=== PATIENT | male | born 1955 | race Caucasian/White ===

== ENCOUNTER 2018-06-25 15:17 | Inpatient (IN) | payer OTHER ==
[~2018-06-25] VITALS: Ht 188 cm; Wt 78.6 kg
[2018-06-25 15:26] VITALS: Ht 188 cm; Wt 78.6 kg
[2018-06-25 16:07] LABS: PLATELET COUNT 203 x10^3mcL (130-400)
[2018-06-25 16:18] LABS: RED CELL DISTRIBUTION WIDTH 16.5 % (11.5-14.5)
[2018-06-25 16:42] LABS: ALBUMIN 2.9 g/dL (3.4-5.0); BILIRUBIN TOTAL 0.4 mg/dL (0.20-1.00); CALCIUM 8.9 mg/dL (8.5-10.1); CARBON DIOXIDE 19.2 mmol/L (21-32); CREATININE SERUM 1.8 mg/dL (0.7-1.3); TOTAL PROTEIN, SERUM 7.8 g/dL (6.4-8.2)
[2018-06-25 16:44] LABS: POTASSIUM SERUM 2.3 mmol/L (3.5-5.1)
[2018-06-25] MEDS ORDERED: ATIVAN0.5 M1 PO (17:40)
[2018-06-25] MEDS ORDERED: METFORMIN HYD1000 M2 PO (17:40)
[2018-06-25] MEDS ORDERED: NOR10T PO (17:40)
[2018-06-25] MEDS ORDERED: LANTUS SOLOS100 U/M1 SQ (17:40)
[2018-06-25 17:44] LABS: BAND NEUTROPHIL 44 % (0-10); METAMYELOCTE 2 % (0-2); MONOCYTE 12 % (0-7); MYELOCYTE 2 % (0-2); SEGMENTED NEUTROPHILS 27 % (37-75); ovalocyte/elliptocyte 1+; rbc morphology (normal/abnorm) ABNORMAL (NORMAL)
[2018-06-25 17:45] LABS: target cell (codocyte) 1+; tear drop cell (dacryocyte) 1+
[2018-06-25 18:20] LABS: T3 TOTAL 0.66 ng/mL
[2018-06-25 18:29] LABS: FREE T4 1.47 ng/dL (0.76-1.46); FREE THYROXINE INDEX 2.4 ug/dL (1.4-4.5); T4(THYROXINE) 6.3 ug/dL (4.7-13.3)
[2018-06-25 18:36] VITALS: BP 131/84
[2018-06-25 19:08] LABS: MAGNESIUM 1.9 mg/dL (1.8-2.4); PHOSPHOROUS 3.8 mg/dL (2.5-4.9)
[2018-06-25 19:15] LABS: CHOLESTEROL/HDL RATIO 13.4
[2018-06-25] MEDS ORDERED: GLYBURIDE5 MG PO (20:31)
[2018-06-25] MEDS ORDERED: GEMFIBROZIL600 MG PO (20:32)
[2018-06-25 20:51] VITALS: BP 130/79
[2018-06-25] MEDS ORDERED: LOVASTATIN20 MG PO (20:51)
[2018-06-25] MEDS ORDERED: NEURONTIN600 MG PO (20:51)
[2018-06-25] MEDS ORDERED: FLO4 PO (20:52)
[2018-06-25] MEDS ORDERED: CLOPIDOGREL75 M1 PO (20:53)
[2018-06-25] MEDS ORDERED: HYDROCHLOROTHIA25 MG PO (20:53)
[2018-06-25] MEDS ORDERED: ASPIRIN325 MG PO (20:53)
[2018-06-25] MEDS ORDERED: LOVASTATIN40 MG PO (20:54)
[2018-06-25] MEDS ORDERED: AMBIEN5 MG PO (20:54)
[2018-06-25 21:22] LABS: UA SPECIFIC GRAVITY >=1.030 (1.005-1.035); microscopic required? YES; urine erythrocyte NEGATIVE (NEGATIVE)
[2018-06-25 21:30] LABS: AMPHETAMINE QUAL UR NONE DETECTED (See below)
[2018-06-25 22:18] LABS: CALCIUM 8.1 mg/dL (8.5-10.1); CARBON DIOXIDE 22.4 mmol/L (21-32); CREATININE SERUM 1.9 mg/dL (0.7-1.3)
[2018-06-25 22:25] LABS: POTASSIUM SERUM 2.9 mmol/L (3.5-5.1)
[2018-06-26 04:52] VITALS: BP 110/74
[2018-06-26 07:22] LABS: PLATELET COUNT 170 x10^3mcL (130-400)
[2018-06-26 07:35] LABS: BASOPHIL % 0 % (0-2); RED CELL DISTRIBUTION WIDTH 16.6 % (11.5-14.5)
[2018-06-26 07:36] LABS: rbc morphology (normal/abnorm) ABNORMAL (NORMAL)
[2018-06-26 07:40] LABS: CALCIUM 8.1 mg/dL (8.5-10.1); CARBON DIOXIDE 17.8 mmol/L (21-32); CREATININE SERUM 1.6 mg/dL (0.7-1.3); MAGNESIUM 1.7 mg/dL (1.8-2.4); PHOSPHOROUS 3.4 mg/dL (2.5-4.9); POTASSIUM SERUM 3.2 mmol/L (3.5-5.1)
[2018-06-26 08:00] VITALS: BP 114/75
[2018-06-26 08:50] VITALS: BP 125/77
[2018-06-26 13:54] VITALS: BP 123/69
[2018-06-26 16:54] VITALS: BP 152/84
[2018-06-26 20:52] VITALS: BP 132/82
[2018-06-27 05:43] VITALS: BP 121/78
[2018-06-27 06:52] LABS: PLATELET COUNT 194 x10^3mcL (130-400)
[2018-06-27 06:59] LABS: CALCIUM 8.4 mg/dL (8.5-10.1); CARBON DIOXIDE 18.9 mmol/L (21-32); CREATININE SERUM 1.3 mg/dL (0.7-1.3); MAGNESIUM 2.1 mg/dL (1.8-2.4); PHOSPHOROUS 3.3 mg/dL (2.5-4.9)
[2018-06-27 07:17] LABS: RED CELL DISTRIBUTION WIDTH 16.3 % (11.5-14.5)
[2018-06-27 09:18] VITALS: BP 121/74
[2018-06-27 10:42] LABS: BAND NEUTROPHIL 28 % (0-10); BASOPHIL 0 % (0-2); METAMYELOCTE 2 % (0-2); MONOCYTE 9 % (0-7); SEGMENTED NEUTROPHILS 44 % (37-75); ovalocyte/elliptocyte 1+; rbc morphology (normal/abnorm) ABNORMAL (NORMAL); schistocyte (helmet cell) 1+; target cell (codocyte) 1+; tear drop cell (dacryocyte) 1+
[2018-06-27 10:43] LABS: PLATELET MORPHOLOGY GIANT PLATELET SEEN; burr cell (echinocyte) 1+
[2018-06-27 13:57] VITALS: BP 168/90
[2018-06-27 14:13] LABS: IRON 31 ug/dL (65-170); TOTAL IRON BINDING CAPACITY 173 ug/dL (250-450)
[2018-06-27 17:11] VITALS: BP 144/83
[2018-06-27 20:00] VITALS: BP 144/86
[2018-06-28 05:17] VITALS: BP 138/83
[2018-06-28 06:51] LABS: PLATELET COUNT 212 x10^3mcL (130-400)
[2018-06-28 06:58] LABS: RED CELL DISTRIBUTION WIDTH 16.3 % (11.5-14.5)
[2018-06-28 07:10] LABS: CALCIUM 8.3 mg/dL (8.5-10.1); CARBON DIOXIDE 18.7 mmol/L (21-32); CHLORIDE SERUM 108 mmol/L (98-107); GFR1 > 60 mL/min; GLUCOSE SERUM 146 mg/dL (74-106); MAGNESIUM 2.6 mg/dL (1.8-2.4); PHOSPHOROUS 2.4 mg/dL (2.5-4.9); POTASSIUM SERUM 4.2 mmol/L (3.5-5.1); SODIUM SERUM 139 mmol/L (136-145)
[2018-06-28 09:18] VITALS: BP 146/90
[2018-06-28 11:10] LABS: BAND NEUTROPHIL 37 % (0-10); BASOPHIL 0 % (0-2); METAMYELOCTE 1 % (0-2); MONOCYTE 3 % (0-7); MYELOCYTE 2 % (0-2); SEGMENTED NEUTROPHILS 45 % (37-75)
[2018-06-28 11:11] LABS: ovalocyte/elliptocyte 1+; rbc morphology (normal/abnorm) ABNORMAL (NORMAL); target cell (codocyte) 1+; tear drop cell (dacryocyte) 1+
[2018-06-28 14:14] VITALS: BP 144/87
[2018-06-28 16:56] VITALS: BP 149/92
[2018-06-28 20:00] VITALS: BP 158/88
[2018-06-28 20:57] VITALS: BP 157/92
[2018-06-29 05:31] VITALS: BP 149/86
[2018-06-29 07:02] LABS: CALCIUM 8.2 mg/dL (8.5-10.1); CARBON DIOXIDE 18.7 mmol/L (21-32); CHLORIDE SERUM 105 mmol/L (98-107); CREATININE SERUM 0.9 mg/dL (0.7-1.3); GFR1 > 60 mL/min; GLUCOSE SERUM 148 mg/dL (74-106); PHOSPHOROUS 2.6 mg/dL (2.5-4.9); SODIUM SERUM 139 mmol/L (136-145)
[2018-06-29 07:03] LABS: PLATELET COUNT 248 x10^3mcL (130-400)
[2018-06-29 07:11] LABS: RED CELL DISTRIBUTION WIDTH 16.9 % (11.5-14.5)
[2018-06-29 09:24] VITALS: BP 149/85
[2018-06-29 09:53] LABS: BAND NEUTROPHIL 22 % (0-10); BASOPHIL 0 % (0-2); METAMYELOCTE 3 % (0-2); MONOCYTE 7 % (0-7); MYELOCYTE 4 % (0-2); SEGMENTED NEUTROPHILS 53 % (37-75)
[2018-06-29 09:54] LABS: ovalocyte/elliptocyte 1+; rbc morphology (normal/abnorm) ABNORMAL (NORMAL); schistocyte (helmet cell) 1+; target cell (codocyte) 1+; tear drop cell (dacryocyte) 1+
[2018-06-29 09:55] LABS: PLATELET MORPHOLOGY PLATELETS NORMAL
[2018-06-29 13:12] VITALS: BP 155/91
[2018-06-29 17:31] VITALS: BP 158/81
[2018-06-29 20:34] VITALS: BP 129/73
[2018-06-30 05:07] VITALS: BP 145/88
[2018-06-30 06:54] LABS: CALCIUM 8.3 mg/dL (8.5-10.1); CARBON DIOXIDE 21.1 mmol/L (21-32); CHLORIDE SERUM 101 mmol/L (98-107); CREATININE SERUM 0.8 mg/dL (0.7-1.3); GFR1 > 60 mL/min; GLUCOSE SERUM 151 mg/dL (74-106); MAGNESIUM 1.5 mg/dL (1.8-2.4); PHOSPHOROUS 3.1 mg/dL (2.5-4.9); POTASSIUM SERUM 3.9 mmol/L (3.5-5.1); SODIUM SERUM 136 mmol/L (136-145)
[2018-06-30 07:09] LABS: PLATELET COUNT 273 x10^3mcL (130-400)
[2018-06-30 07:33] LABS: BASOPHIL % 0 % (0-2); RED CELL DISTRIBUTION WIDTH 16.4 % (11.5-14.5)
[2018-06-30 08:12] VITALS: BP 132/63
[2018-06-30 09:55] LABS: ovalocyte/elliptocyte 1+; target cell (codocyte) 1+
[2018-06-30 10:31] LABS: rbc morphology (normal/abnorm) ABNORMAL (NORMAL)
[2018-06-30 12:43] VITALS: BP 143/81
[2018-06-30 17:09] VITALS: BP 122/78
[2018-06-30] MEDS ORDERED: ERYTHROMYCIN B250 MG PO (18:08)
[2018-06-30 19:59] VITALS: BP 122/78
== END 2018-06-30 20:56 | disposition home or self-care (01) | DRG 247 ==
LOC: ED 15:17 → DU 17:30
PROVIDERS: Emergency Medicine; Family Medicine; Internal Medicine; Internal Medicine Gastroenterology
DX: K56.600 Partial intestinal obstruction, unspecified as to cause (principal); N17.0 Acute kidney failure with tubular necrosis; E44.0 Moderate protein-calorie malnutrition; E83.42 Hypomagnesemia; E11.42 Type 2 diabetes mellitus with diabetic polyneuropathy; K31.84 Gastroparesis; E11.43 Type 2 diabetes mellitus with diabetic autonomic (poly)neuropathy; E11.65 Type 2 diabetes mellitus with hyperglycemia; K56.7 Ileus, unspecified; E87.1 Hypo-osmolality and hyponatremia; E87.6 Hypokalemia; E86.0 Dehydration; D50.9 Iron deficiency anemia, unspecified; I25.10 Atherosclerotic heart disease of native coronary artery without angina pectoris; E78.5 Hyperlipidemia, unspecified; F12.10 Cannabis abuse, uncomplicated; Z68.21 Body mass index [BMI] 21.0-21.9, adult; Z95.1 Presence of aortocoronary bypass graft; Z87.891 Personal history of nicotine dependence; Z79.84 Long term (current) use of oral hypoglycemic drugs; Z79.82 Long term (current) use of aspirin; Z79.4 Long term (current) use of insulin
CPT/HCPCS: 83880; 84439; C9113; J1885; J2060; J2765; J3475; J3480; J7030; J7050; Q0092; Q9967